=== PATIENT | male | born 1955 | race African-American/Black ===

== ENCOUNTER 2020-06-20 18:42 | Emergency (ER) | payer SELFPAY ==
[~2020-06-20] VITALS: Ht 177.8 cm; Wt 82.0 kg
[2020-06-20] MEDS ORDERED: LIDOCAINE 2% VISCOUS 15 ML SOLUTION UDCUP PO ONE ×2 (19:45→20:00)
[2020-06-20] MEDS ORDERED: HYDROGEN PEROXIDE 118 ML SOLUTION ONE (20:12)
[2020-06-20 21:07] VITALS: BP 123/74
== END 2020-06-20 21:07 | disposition home or self-care (01) ==
LOC: EMS 18:42
DX: H61.21 Impacted cerumen, right ear (principal); F17.210 Nicotine dependence, cigarettes, uncomplicated
CPT/HCPCS: 69209